=== PATIENT | female | born 1995 | race Caucasian/White ===

== ENCOUNTER 2021-09-14 13:33 | Outpatient (REF) | payer BC, SELFPAY ==
--- NOTE | ~2021-09-14 | MR_ITS ---
EXAMINATION: MRI OF THE BRAIN WITHOUT CONTRAST CLINICAL INFORMATION: 26-year-old with history of seizures. COMPARISON: Previous studies performed at [facility] in 2017 are not currently available for comparison. If clinically warranted, we can attempt to obtain these prior is and an addendum can be done at that time. TECHNIQUE: Multiplanar multisequence MR imaging of the brain was done without IV contrast. 1.5 Lor scanner. FINDINGS: Brain Volume: Within normal range within the limitations of a qualitative assessment. Structural: No malformations. Brain and Meninges: DWI sequence demonstrates no restricted diffusion to suggest acute or subacute cerebral ischemia. Gradient refocused imaging demonstrates no evidence for hemorrhage, hemosiderin staining or abnormal mineral deposition. The brain is normal in morphology. There are scattered small zones of FLAIR/T2 signal hyperintensity within the subcortical white matter of both cerebral hemispheres which are nonspecific findings. Ribeiro-white matter interface is preserved. No extra-axial fluid collections, space-occupying process or mass effect are identified. Ventricles and Subarachnoid Spaces: The ventricular system and subarachnoid spaces are within normal limits, without hydrocephalus. Orbital Structures: The visualized orbital structures are grossly unremarkable within the limitations of the study. Vascular: Signal voids are noted in the visualized major intracranial vessels. Osseous Structures, Sinuses/Mastoids, Extracranial Soft Tissues: Unremarkable MR/MR head/brain wo con IMPRESSION: 1. Scattered small subcortical white matter T2 hyperintensities in the cerebral hemispheres as described above. No acute intracranial process, space-occupying process, mass effect or hydrocephalus.
== END 2021-09-14 13:34 | disposition home or self-care (01) ==
LOC: HO.MRI 13:33
PROVIDERS: Visit Provider Psychiatry & Neurology Neurology
DX: G93.49 Other encephalopathy (principal)
CPT/HCPCS: 70551

== ENCOUNTER 2022-03-18 13:47 | Outpatient (REF) | payer BC, MEDICAID, SELFPAY ==
[2022-03-20 01:24] LABS: Lyme Abs Screen <0.90 index
[2022-03-23 15:23] LABS: Anti Nuclear Antibody Screen NEGATIVE (NEGATIVE)
[2022-03-24 18:13] LABS: IgA 162 mg/dL (47-310); IgG 1083 mg/dL (600-1640); IgM 106 mg/dL (50-300)
[2022-03-25 15:33] LABS: Anti DNA DS Antibody <1 IU/mL; Myeloperoxidase Antibody <1.0 AI; Proteinase 3 PR3 Antibodies <1.0 AI
== END 2022-03-18 13:48 | disposition home or self-care (01) ==
LOC: HO.LAB 13:47
PROVIDERS: Visit Provider Psychiatry & Neurology Neurology
DX: G93.49 Other encephalopathy (principal)
CPT/HCPCS: 36415; 82784; 86021; 86038; 86039; 86225; 86334; 86617; 86618

== ENCOUNTER 2022-04-01 13:47 | Outpatient (REF) | payer BC, MEDICAID, SELFPAY ==
--- NOTE | ~2022-04-01 | MR_ITS ---
MRI CERVICAL AND THORACIC SPINE WITH AND WITHOUT IV CONTRAST CLINICAL INFORMATION: White matter changes. COMPARISON: Brain MRI 09/14/2021. TECHNIQUE: Multiplanar multisequence MR imaging of the cervical and thoracic spine obtained before and following the administration of 6 mL of Gadavist intravenous contrast without complication. FINDINGS: CERVICAL SPINE MRI: No definite cervical cord signal changes however assessment is limited by the degree of motion artifact. There are no definite enhancing cervical cord lesions however assessment is limited by artifact.. No suspicious enhancing intraosseous lesions. There are no cervical disc herniations. There is no central canal stenosis and there is no foraminal stenosis within the cervical spine. THORACIC SPINE MRI: 12 rib bearing thoracic type vertebral bodies. Thoracic alignment is maintained. There is mild disc volume loss and disc desiccation at the mid to lower thoracic levels. Chronic vertebral body height loss at T3, T4, T5, T6, T7, T8, and T9. No bone marrow edema to suggest any acute fractures. No definite cord signal changes accounting for artifact. Conus terminates at the L1-L2 level. No significant extra spinal soft tissue findings. Small paracentral disc herniations at T6-T7, T7-T8, and T9-T10. The disc herniation at T9-T10 is a superiorly migrating right paracentral disc extrusion that slightly flattens the ventral cord without resulting in central canal stenosis. No severe central canal stenosis and no severe foraminal stenosis within the thoracic spine. MR/MR cervical spine wo/w con IMPRESSION: - No definite cervical cord lesions are identified however assessment is very limited by the degree of motion artifact. There are no cervical disc herniations. There is no central canal stenosis and there is no foraminal stenosis within the cervical spine. -No definite thoracic cord lesions and no definite enhancing thoracic cord lesions with assessment limited by motion artifact. - Small paracentral disc herniations at T6-T7, T7-T8, and T9-T10. The disc herniation at T9-T10 is a superiorly migrating right paracentral disc extrusion that slightly flattens the ventral cord without resulting in central canal stenosis. No severe central canal stenosis and no severe foraminal stenosis within the thoracic spine. - Chronic vertebral body height loss at T3, T4, T5, T6, T7, T8, and T9. No bone marrow edema to suggest any acute fractures.
== END 2022-04-01 13:48 | disposition home or self-care (01) ==
LOC: HO.MRI 13:47
PROVIDERS: Visit Provider Psychiatry & Neurology Neurology
DX: G93.49 Other encephalopathy (principal); M51.24 Other intervertebral disc displacement, thoracic region
CPT/HCPCS: 72156; 72157; A9585